=== PATIENT | male | born 1970 | race Caucasian/White ===

== ENCOUNTER 2025-06-03 06:04 | Day surgery (SDC) | payer BC, SELFPAY ==
[2025-06-03] VITALS (22 sets, daily range): BP systolic 105–144; BP diastolic 57–94; PULSE 54–71; RESP 14–16; TEMP 36.2–36.7; O2SAT 90–100; BMI 32.8
[2025-06-03] MEDS: LACTATED RINGERS 1000 ML 1,000 ML 100 ML IV ×3 (06:15→10:09)
[2025-06-03] MEDS: OXYCODONE (CR) 10 MG TAB.ER.12H PO (07:00)
[2025-06-03] MEDS: ACETAMINOPHEN 500 MG TABLET 1000 MG PO (07:00)
[2025-06-03] MEDS: MIDAZOLAM HCL 1 MG/ML inj IVP (07:01)
--- NOTE | 2025-06-03 07:11 | W.PM.H&PU ---
History & Physical Update History & Physical Update H&P Reviewed and patient assessed: No changes noted
[2025-06-03] MEDS: SODIUM CHLORIDE 0.9 % (FLUSH) 10 ML SYRINGE IVF (07:17)
--- NOTE | 2025-06-03 07:20 | SUR.PREOP ---
TIME?OUT:?0700 PT/RN/MDA?VERIFICATION?OF?SURGICAL?SITE,?PROCEDURE,?AND?CONSENT OBTAINED?PRIOR?TO?INVASIVE?PROCEDURE.
--- NOTE | 2025-06-03 07:25 | CRLHL7_ITS ---
For Patients: As a result of the Cures Act, medical imaging exams and procedure reports are released immediately into your electronic medical record. You may view this report before your referring provider. If you have questions, please contact your health care provider. Indication: Hip replacement surgery Technique: AP hip fluoroscopic image. Fluoroscopy time 35.6 seconds. Findings/Impression: Hardware from a left total hip arthroplasty is in satisfactory position. Dictated by Meliton Salcido MD @ 06/03/2025 11:15:15 AM (Electronically Signed)
[2025-06-03] MEDS: TRANEXAMIC ACID 100 MG/ML INJ 1000 MG IV (07:47)
--- NOTE | 2025-06-03 07:48 | P.ANES_ITS ---
Anesthesia Charges Start Date/Time Anesthesia Start Date: 06/03/25 Anesthesia Start Time: 07:19 Stop Date/Time Anesthesia Stop Date: 06/03/25 Anesthesia Stop Time: 09:42 Coding CPT Codes CPT Codes: ANESTH HIP ARTHROPLASTY - 11666 ([id number]) P2 - PATIENT W/MILD SYST DISEASE, QK - BACKWINDER 2-4 CNCRNT ANES PROC, QX - SENIOR FINANCIAL CONSULTANT SVC W/ MD MED DIRECTION
--- NOTE | 2025-06-03 07:48 | W.PM.NB ---
Nerve Block Nerve Block Time Seen by Provider: 07:07 Date Seen: 06/03/25 Type of block requested by surgeon for post-operative analgesia: PRASANNA/LFCN Side: left Time out performed: Yes Verification of patient name: Yes Verification of date of : Yes Site marking: site marked Name of person performing procedure: [place] Continuous monitoring Was continuous monitoring of O2 sat, B/P, cardiac cath lab radiology technologist, recorded every 15 minutes?: Yes Procedure Checklist: sterile prep, needles and gloves Ultrasound guided. Images saved: Yes Medications given in 5ml increments after negative aspiration: Ropivicaine %: 0.5 mL: 30 Needle gauge: 20 Precedex (mcg): 25 Patient tolerated procedure well: Yes Additional comments: Needle noted below psoas tendon needle noted adjacent to LFCN Block Charges Block Charge (with Pro Fee): Other Periph Nerve Block Use of Ultrasound Machine for Block: Yes- US Guidance/pain block
--- NOTE | 2025-06-03 07:48 | W.ANESCHARGE ---
Anesthesia Charges Start Date/Time Anesthesia Start Date: 06/03/25 Anesthesia Start Time: 07:19 Stop Date/Time Anesthesia Stop Date: 06/03/25 Anesthesia Stop Time: 09:42 Coding CPT Codes CPT Codes: ANESTH HIP ARTHROPLASTY - 13848 ([id number]) P2 - PATIENT W/MILD SYST DISEASE, QK - SYSTEM OPERATION SUPERINTENDENT 2-4 CNCRNT ANES PROC, QX - SPEECH LANGUAGE ASSISTANT SVC W/ MD MED DIRECTION
--- NOTE | 2025-06-03 09:02 | P.ORPRC_ITS ---
Procedure Note Date of procedure: 06/03/25 Procedure: PREOPERATIVE DIAGNOSIS: 1. Left hip osteoarthritis, severe, primary POSTOPERATIVE DIAGNOSIS: 1. Left hip osteoarthritis, severe, primary PROCEDURE: 1. Left total hip arthroplasty-anterior approach 2. [id number] - intraoperative fluoroscopy up to 1 hour. SURGEON: Yuan Romo MD. EDUCATIONAL THERAPIST: Masood Vera PA-C; BRANDON Nina - Of note, a skilled anatomic pathology assistant was critical for this case to aid in patient positioning, tissue retraction, limb manipulation/positioning, dislocation/relocation, patient safety, and closure. ANESTHESIA: Spinal anesthetic EBL: 350ml IMPLANTS: DePuy J[employer]J uncemented total hip [place] cup size 56, hole eliminator, +4 neutral liner Actis stem, high offset, size 5 +1.5 mm ceramic 36 mm head. COMPLICATIONS: None evident INDICATIONS: The patient is a pleasant 54-year-old male who has experienced severe left hip pain and difficulty bearing weight. Workup included x-rays which revealed severe osteoarthrosis in the hip. Given the deformity, the d ysfunction, and the pain, as well as the failure of nonoperative management, recommendation was made for surgery. FINDINGS: Full-thickness chondral loss diffusely throughout the femoral head as well as acetabulum. Osteophytes around the femoral head/neck junction and perimeter of the acetabulum. Large effusion upon entering the joint. DESCRIPTION OF PROCEDURE: Following a thorough discussion of risks, benefits, and alternatives consent was obtained and the left hip was marked. The patient was brought to the operating room and placed supine on the operating table. Induction of anesthesia was undertaken. 2 g IV Ancef and 1 g tranexamic acid was administered within 1 hr of incision preoperatively. Proper time-out was performed identifying proper patient, site, procedure. The operative extremity was prepped and draped in the appropriate sterile fashion using ChloraPrep after the patient was positioned on the [place] table with head in neutral alignment and all bony prominences well padded. C-arm fluoroscopic imaging was utilized to confirm proper pelvis rotation and position, and to get true AP films of both the contralateral left, and the affected left hip. This is for comparison. A longitudinal incision was made starting approximately 1 cm distal to the ASIS, and 2-3 cm lateral. The incision was extended distally aiming toward the fibular head. Sharp incision through skin and bovie cautery through the subcutaneous tissue allowed identification of the TFL fascia. This was sharply divided, and the fascia bluntly released from the muscle fibers as we dissected medial. Upon coming to the medial border, we were able to retract the TFL laterally, and penetrated the deeper fascia and identify the crossing circumflex vessels. These were ligated/cauterized. The rectus was elevated from the capsule, and retractors placed laterally and medially along the femoral neck to help with visualization of the capsule. We then performed an inverted T capsulotomy. The capsule was tagged for later repair. Retractors were placed inside the capsule. The femoral neck was visualized after releasing medially down to the lesser trochanter, along the saddle laterally, and up onto the acetabulum. The femoral neck cut was made in line with our preoperative templating. The head was removed in a single piece, and sized. We turned our attention to acetabular preparation. Initially, the labrum was resected from around the perimeter, the pulvinar was excised, allowing us to visualize the false wall. We started the reaming with a 43 mm reamer. This was medialized down to the true wall. We then enlarged our reamers sequentially up to one size less than the selected cup size. We trialed at the same size and found it to have an excellent fit. The selected cup was then opened, inserted, and impacted in line with the goal of 40-45? of abduction, and 20-25? of anteversion. This was confirmed on C-arm fluoroscopic imaging to be in the appropriate/goal position. Once the cup was placed we placed a hole eliminator and a liner consistent with preop planning. Attention was turned to the femoral preparation. The limb was extended, externally rotated, and adducted. The posteromedial capsule was released, as retractors were placed allowing excellent access to the proximal femur. Initially a sweat box attendant was followed by canal finder followed by various broaches. We broached sequentially up to size noted above, found it to have excellent rotational control, and trialing various heads and necks, revealed that appropriate neck offset, and the above noted head size provided the greatest stability, and voodoo of length, and offset. C-arm fluoroscopic imaging confirmed position of the stem, as well as leg lengths, which were compared with the pre procedure all fluoroscopic images. Trial implants were removed, the real femoral stem inserted, as was the ceramic head. After reducing, the leg was placed through range of motion and stability was confirmed anterior, posterior, and lateral. A 3 min Betadine soak was then performed, and thorough irrigation with normal saline followed. Closure of the capsule was performed with #1 PDS. Bleeding was confirmed to be controlled at this stage, and the TFL fascia was closed with #0 strata fix. Subcutaneous, and subcuticular closure was performed with 2-0 Stratafix and 4-0 Stratafix, respectively. Dressings were applied, and the patient was awoken from anesthesia and transferred the PACU in stable condition. A skilled anatomic pathology assistant was critical for this case to aid in patient positioning, tissue retraction, proximal femur exposure, limb manipulation/positioning, dislocation/relocation, patient safety, and closure. PLAN: 1. Weight bear as tolerated operative extremity. 2. 23 hr perioperative antibiotics. 3. Ice. 4. PT/OT consults for ambulation assistance/mobility education. 5. Social work consult for discharge planning. 6. DVT prophylaxis with at SCDs and Xarelto x5 days followed by aspirin for a total of 1 month.
--- NOTE | 2025-06-03 09:33 | CRLHL7_ITS ---
For Patients: As a result of the Cures Act, medical imaging exams and procedure reports are released immediately into your electronic medical record. You may view this report before your referring provider. If you have questions, please contact your health care provider. Indication: POST OP LEFT GÉNESIS Technique: AP hip centered pelvis and lateral view left hip Findings/Impression: Hardware from a left total hip arthroplasty is in satisfactory position. Bone alignment is normal. No sign of acute fracture. Postop changes are within normal limits. Dictated by Meliton Salcido MD @ 06/03/2025 11:16:53 AM (Electronically Signed)
[2025-06-03] MEDS: IBUPROFEN 200 MG TABLET 600 MG PO (11:48)
--- NOTE | 2025-06-03 14:10 | SUR.PHASEII ---
Pt return from PT evalutation. Pt has not urinated yet. Pt to bathroom and states he did not urinate. Informed anesthesia, bladder scan ordered. Bladder scan results were 46mL,57mL,39mL. Informed anesthesia, 500mL fluid bolus ordred. Will continue to monitor.
[2025-06-03] MEDS: LACTATED RINGERS 500 ML 500 ML IV (15:00)
--- NOTE | 2025-06-03 16:45 | SUR.PHASEII ---
Pt up to bathroom and had successful urine output.
== END 2025-06-03 17:00 | disposition home or self-care (01) ==
PROVIDERS: Visit Provider Orthopaedic Surgery Sports Medicine
PROC: (CPT 27130; principal; 2025-06-03 07:30)
DX: M16.12 Unilateral primary osteoarthritis, left hip (principal); G89.18 Other acute postprocedural pain; I10 Essential (primary) hypertension
CPT/HCPCS: 27130; 01214; 36415; 64450; 73501; 76000; 76942; 86850; 86900; 86901; 97110; 97161; 97165; 97530; 97535; A9270; C1776; J0690; J1100; J2250; J2405; J2704; J2710; J2795; J3010; J3475; J3490; J7120